=== PATIENT | male | born 1985 | race Caucasian/White ===

== ENCOUNTER 2017-02-09 13:47 | Emergency (ER) | payer OTHER ==
--- NOTE | 2017-02-09 14:40 | RAD ---
HISTORY: constipation COMPARISON: No prior. FINDINGS: BOWEL: There appears to be several air-filled loops of small bowel in the left mid abdomen nonspecific. Stool and air seen throughout the colon. No evidence to suggest acute mechanical bowel obstruction at this time. No gross free intraperitoneal air seen under the diaphragmatic surfaces. BONES: Incidental note made of spina bifida occulta S1 segment. OTHER FINDINGS: None. IMPRESSION: Questionable mild nonspecific ileus. No evidence to suggest acute mechanical bowel obstruction. No gross free intraperitoneal air seen under the diaphragmatic surfaces.
--- NOTE | 2017-02-09 14:47 | RAD ---
PROCEDURE: Lumbar spine 02/09/2017. HISTORY: pain COMPARISON: No prior. FINDINGS: BONES: Current study reveals no evidence of acute compression fractures no retropulsed fragments. Vertebral bodies exhibit normal stature. Pedicles intact however note is made of a incidental spina bifida occulta S1 segment. . DISC SPACES: Disc space heights relatively maintained. OTHER FINDINGS: None. IMPRESSION: No evidence of acute compression fractures. Incidental spina bifida occulta S1 segment.
[2017-02-09 14:52] LABS: RBC URINE 1 /hpf (0-3); URINE BILIRUBIN NEGATIVE (NEGATIVE); URINE BLOOD NEGATIVE (NEGATIVE); URINE COLOR Yellow (YELLOW); URINE GLUCOSE (UA) NORMAL (Normal); URINE KETONE NEGATIVE (NEGATIVE); URINE LEUKOCYTE ESTERASE NEG Leu/uL (Negative); URINE PROTEIN NEGATIVE (NEGATIVE); URINE UROBILINOGEN NORMAL mg/dL (0.2-1.0); WBC URINE < 1 /hpf (0-5)
--- NOTE | 2017-02-09 15:00 | C.PDOC ---
History Of Present Illness 32 yo male come in for evaluation of diffuse lower back pain for past month. Pt reports, pain is gradually worsen over time, localized, worse with movement, standing. Pt admits, similar sx in past. Pt also c/o constipation and depression , appears very emotional at moment. Pt reports, " this constant pain makes me so depressed. I just had argument with my family, they dont understand". Pt admits, previous hx of depression " was always able to control it", denies use of antidepressant in past. Otherwise, pt denies fever, chills, known trauma or injury, CP, SOB, abd. pain, N/V/D, UTI sx, incontinence, saddle anesthesia, denies weakness, sensory or vascular deficits to B/L LEs. Ambulate to ED, appears emotional distress. Time Seen by Provider: 02/09/17 13:56 Chief Complaint (Nursing): Back Pain History Per: Patient History/Exam Limitations: no limitations Onset/Duration Of Symptoms: Persistent (1 month) Current Symptoms Are (Timing): Still Present Past Medical History Reviewed: Historical Data, Nursing Documentation, Vital Signs Vital Signs: Last Vital Signs Temp 98.5 F 02/09/17 13:49 Pulse 96 H 02/09/17 13:49 Resp 20 02/09/17 13:49 BP 140/84 02/09/17 13:49 Pulse Ox 97 02/09/17 15:08 - Medical History PMH: Asthma Family History: States: No Known Family Hx - Social History Hx Alcohol Use: Yes Hx Substance Use: No - Immunization History Hx Tetanus Toxoid Vaccination: No Hx Influenza Vaccination: No Hx Pneumococcal Vaccination: No Review Of Systems Except As Marked, All Systems Reviewed And Found Negative. Constitutional: Negative for: Fever, Chills Cardiovascular: Negative for: Chest Pain Respiratory: Negative for: Shortness of Breath Gastrointestinal: Positive for: Constipation. Negative for: Nausea, Vomiting, Abdominal Pain, Diarrhea Genitourinary: Negative for: Incontinence Musculoskeletal: Positive for: Back Pain (Diffuse lower back pain ), Other (No saddle anesthesia ) Neurological: Negative for: Weakness, Numbness Psych: Positive for: Depression Physical Exam - Physical Exam Appears: Well, Non-toxic, No Acute Distress Skin: Normal Color, Warm, Dry, No Rash, No Ecchymosis Eye(s): bilateral: PERRL Throat: Normal, No Erythema, No Exudate, No Drooling Neck: Supple Cardiovascular: Rhythm Regular Respiratory: No Decreased Breath Sounds, No Accessory Muscle Use, No Rales, No Rhonchi, No Stridor, No Wheezing Gastrointestinal/Abdominal: Soft, No Tenderness, No Distention, No Guarding Back: No CVA Tenderness, No Vertebral Tenderness, Paraspinal Tenderness ( diffuse lumbar paraspinal tenderness, no midine tenderness. No skin changes.) Extremity: No Pedal Edema, No Calf Tenderness, No Deformity, No Swelling Neurological/Psych: Oriented x3, Normal Speech, Normal Motor, Normal Sensation, Normal Reflexes ED Course And Treatment O2 Sat by Pulse Oximetry: 97 Pulse Ox Interpretation: Normal - Other Rad X-Ray - LS Spine X-Ray: Viewed By Me, Read By Radiologist Interpretation: PROCEDURE: Lumbar spine 02/09/2017. HISTORY: pain. COMPARISON: No prior. FINDINGS: BONES: Current study reveals no evidence of acute compression fractures no retropulsed fragments. Vertebral bodies exhibit normal stature. Pedicles intact however note is made of a incidental spina bifida occulta S1 segment. . DISC SPACES: Disc space heights relatively maintained. OTHER FINDINGS: None. IMPRESSION: No evidence of acute compression fractures. Incidental spina bifida occulta S1 segment. X-Ray - Abdomen X-Ray: Viewed By Me, Read By Radiologist Interpretation: HISTORY: constipation. COMPARISON: No prior. FINDINGS: BOWEL: There appears to be several air-filled loops of small bowel in the left mid abdomen nonspecific. Stool and air seen throughout the colon. No evidence to suggest acute mechanical bowel obstruction at this time. No gross free intraperitoneal air seen under the diaphragmatic surfaces. BONES: Incidental note made of spina bifida occulta S1 segment. OTHER FINDINGS: None. IMPRESSION: Questionable mild nonspecific ileus. No evidence to suggest acute mechanical bowel obstruction. No gross free intraperitoneal air seen under the diaphragmatic surfaces. Progress Note: On re-evaluation, pt is afebrile, hemodynamicaly stable. Non- toxic. PuslOx 99% RA. Neck: Supple, (-) meningeal sign. ENT: No acute findings. Abd: benign. Back: (-) CVA tenderness. neurologicaly intact. UA, UDS results review- normal study. Pt was evaluated by PES, refused info for further psych eval of his depressive mood. As per PES, denies suicidal/ homocidal ideation, appears appropriate. Pt has cinical findings c/w diffuse lower back pain, depressive mood. Pt advised on course of ds. ref. to F/u with PMD in 2-3 days for re-eval. return if any worsening or new changes. Medical Decision Making Medical Decision Making: PLAN: * X-Ray - Abdomen, LS Spine * Drug Screen * Urinalysis * Tramadol PO * Valium PO Disposition Counseled Patient/Family Regarding: Studies Performed, Diagnosis, Need For Followup, Rx Given - Disposition Referrals: South Hale MD [Staff Provider] - [facility] [Outside] Disposition Time: 15:30 Condition: STABLE Additional Instructions: Light duty to lower back Avoid heavy lifting, physical activity for 1 week Take pain medication as need Consider follow up with Psychiatrist for further evaluation of depression return to ED at any time if any worsening or new changes. Prescriptions: Methocarbamol [Robaxin] 500 mg PO TID #14 tab traMADol [Ultram] 50 mg PO TID #7 tab Instructions: Back Pain (ED), Depression (ED) Forms: Work Excuse - Clinical Impression Clinical Impression: Back pain, Depression - PA / ACTUARY CLERK / Resident Statement MD/DO has reviewed & agrees with the documentation as recorded. - Scribe Statement The provider has reviewed the documentation as recorded by the Scribe Glenda Sainz All medical record entries made by the Angelineibjavier were at my direction and personally dictated by me. I have reviewed the chart and agree that the record accurately reflects my personal performance of the history, physical exam, medical decision making, and the department course for this patient. I have also personally directed, reviewed, and agree with the discharge instructions and disposition.
[2017-02-09 16:22] VITALS: BP 129/72; PULSE 75; RESP 18; TEMP 98.7; O2SAT 98
== END 2017-02-09 16:22 | disposition home or self-care (01) ==
LOC: C.ER 13:47
DX: M54.5 Low back pain (principal); F32.9 Major depressive disorder, single episode, unspecified

== ENCOUNTER 2017-04-21 19:07 | Emergency (ER) | payer OTHER ==
[2017-04-21] MEDS ORDERED: Lidocaine 5% Patch TD STA (19:40)
--- NOTE | 2017-04-21 20:01 | C.PDOC ---
History Of Present Illness 32 year old male with upper back pain for 2 years complains of upper back pain today which is worse on the left side. He is requesting xray and has Rx from Dr. Hale. He denies any radiating pain, chest pain, SOB, numbness or weakness. He states pain is aching pain and constant, worsened with certain movements. He has tried taking tylenol without relief, cannot take NSAID because of allergy. Time Seen by Provider: 04/21/17 19:30 Chief Complaint (Nursing): Back Pain History Per: Patient History/Exam Limitations: no limitations Onset/Duration Of Symptoms: Persistent (upper back pain for two years), Worse Since (pain worse to the left side of the back today) Quality Of Discomfort: Aching Previous Symptoms: Back Pain Associated Symptoms: None Exacerbating Factor(s): Movement (certain movements ) Recent travel outside of the [place]: No Additional History Per: Prior Records (Prescription from Dr. Hale ) Past Medical History Reviewed: Historical Data, Nursing Documentation, Vital Signs Vital Signs: Last Vital Signs Temp 97.8 F 04/21/17 20:36 Pulse 64 04/21/17 20:36 Resp 20 04/21/17 20:36 BP 112/69 04/21/17 20:36 Pulse Ox 100 04/21/17 21:34 - Medical History PMH: Asthma Family History: States: No Known Family Hx - Social History Hx Alcohol Use: Yes Hx Substance Use: No - Immunization History Hx Tetanus Toxoid Vaccination: No Hx Influenza Vaccination: Yes Hx Pneumococcal Vaccination: No Review Of Systems Constitutional: Negative for: Fever, Chills Cardiovascular: Negative for: Chest Pain Respiratory: Negative for: Shortness of Breath Neurological: Negative for: Weakness, Numbness Physical Exam - Physical Exam Appears: Non-toxic, No Acute Distress Skin: Warm, Dry Head: Atraumatic Eye(s): bilateral: Normal Inspection, EOMI Oral Mucosa: Moist Neck: Supple Chest: Symmetrical, No Deformity Cardiovascular: Rhythm Regular Respiratory: Normal Breath Sounds, No Rhonchi, No Wheezing Back: Paraspinal Tenderness (parathoracic tenderness between scapular region and over left subscapular area) Extremity: Normal ROM, No Tenderness ED Course And Treatment O2 Sat by Pulse Oximetry: 100 (room air ) Progress Note: Patient was given Tylenol, Valium, Lidocaine 5%, and Ultram. CXR and thoracic radiology were ordered. Medical Decision Making Medical Decision Makin32 year old male with upper back pain for 2 years worse on the left side. He is requesting xray and has Rx from Dr Hale. XRays ordered and given Tylenol, Valium and Lidoderm patch. Xrays reviewed by me showing no acute findings. Patient reports mild pain improvement. Patient advise to follow up with PCP. Rx given. Disposition Counseled Patient/Family Regarding: Diagnosis, Need For Followup, Rx Given - Disposition Referrals: South Hale MD [Staff Provider] - Disposition: HOME/ ROUTINE Disposition Time: 20:00 Condition: STABLE Additional Instructions: Your xrays were normal. Please take pain medication as needed. Follow up with your primary medical doctor Avoid heavy lifting, physical activity for 1 week return to ED at any time if any worsening or new changes. Prescriptions: Methocarbamol [Robaxin-750] 750 mg PO Q8 #30 tablet traMADol [Ultram] 50 mg PO Q8 #20 tab Instructions: Thoracic Pain (ED), Back Pain (ED) Forms: [employer] (Setswana) - POA Present On Arrival: None - Clinical Impression Clinical Impression: Thoracic back pain - Scribe Statement The provider has reviewed the documentation as recorded by the Scribe Devi Zuniga All medical record entries made by the Scribe were at my direction and personally dictated by me. I have reviewed the chart and agree that the record accurately reflects my personal performance of the history, physical exam, medical decision making, and the department course for this patient. I have also personally directed, reviewed, and agree with the discharge instructions and disposition.
[2017-04-21] MEDS ORDERED: Lidocaine 5% Patch TD ONE (20:03)
[2017-04-21 20:37] VITALS: BP 112/69; PULSE 64; RESP 20; TEMP 97.8
[2017-04-21 21:34] VITALS: O2SAT 100
--- NOTE | 2017-04-22 10:41 | RAD ---
HISTORY: pain left upper back COMPARISON: No prior. TECHNIQUE: Chest PA and lateral FINDINGS: LUNGS: No active pulmonary disease. PLEURA: No significant pleural effusion identified. No pneumothorax apparent. CARDIOVASCULAR: Normal. OSSEOUS STRUCTURES: No significant abnormalities. VISUALIZED UPPER ABDOMEN: Normal. OTHER FINDINGS: None. IMPRESSION: No active disease.
--- NOTE | 2017-04-22 12:29 | RAD ---
HISTORY: pain left upper back COMPARISON: No prior. FINDINGS: BONES: Alignment maintained. No fracture. DISC SPACES: Normal. SOFT TISSUES: Normal. OTHER FINDINGS: None. IMPRESSION: Unremarkable radiographs of the thoracic spine. No preliminary report provided by emergency department personnel.
== END 2017-04-21 20:40 | disposition home or self-care (01) ==
LOC: C.ER 19:07
DX: M54.6 Pain in thoracic spine (principal)